=== PATIENT | female | born 1965 | race Two or more races ===

== ENCOUNTER 2021-05-16 02:21 | Inpatient (IN) | payer MEDICAID, OTHER ==
[2021-05-16] VITALS (33 sets, daily range): BP systolic 97–128; BP diastolic 50–76
[~2021-05-16] VITALS: Ht 162.6 cm; Wt 59.0 kg
--- NOTE | 2021-05-16 02:25 | NUR ---
pt bibra c/o overdose of unknown substance. Per EMS, pt was found face down in the street, unresponsive.Pt brought in saturating 100% on 15L NRB. pt unresponsive to pain GCS 6, md at bedside. Pt attached to monitor tech and pox. Pt skin warm and dry. Pt given call light within reach
--- NOTE | 2021-05-16 02:32 | NUR ---
md at bedside for intubation. 0232- etomitdate 20 0232-rocuronium 100 0234 23 @lip with color change 7.0 tube size
--- NOTE | 2021-05-16 02:34 | NUR ---
RT NOTE PATIENT ORALLY INTUBATED WITH ETT 7.0CM @ 23CM AT THE LIP LINE. COLOR CHANGE ON CO2 DETECTOR NOTED. PATIENT HAS EQUAL CHEST RISE AND BILATERAL BREATH SOUNDS UPON VENTILATION. ETT IS SECURED. PATIENT PLACED ON SETTINGS OF AC18 VT450 FIO2 70% PEEP+5 PER MD. PATIENT SUCTIONED FOR TRACE, THIN, CLEAR SECRETIONS. ALARMS ARE SET AND AUDIBLE. MECHANICAL VENT PLUGGED INTO RED OUTLET. EMERGENCY EQUIPMENT AT PATIENT BEDSIDE. WILL CONTINUE TO MONITOR. WAITING FOR FURTHER ORDERS. Addendum: 05/16/21 at 0327 by FEDERICO AVILES RT Amended: Links added.
[2021-05-16] MEDS ORDERED: PROPOFOL 100 ML ONE (02:36)
[2021-05-16] MEDS ORDERED: LIDOCAINE HCL/MPF 1% 30 ML VIAL IJ ONE (02:43)
[2021-05-16] MEDS ORDERED: PIPERACILLIN /TAZOBACTAM 3.375 G in IV D5W 50 ML IV ONE (03:00)
[2021-05-16] MEDS ORDERED: VANCOMYCIN 1 GM in IV D5W 250 ML IV ONE (03:00)
[2021-05-16] MEDS ORDERED: PROPOFOL 100 ML IV PRN ×2 (03:00→04:00)
[2021-05-16] MEDS ORDERED: IV NS 0.9% 1,000 ML BAG IV ONE (03:00)
[2021-05-16] MEDS ORDERED: FENTANYL CITRAT IV 2,500 MCG in IV NS 0.9% 200 ML IV PRN (03:00)
--- NOTE | 2021-05-16 03:00 | NUR ---
taken to ct
[2021-05-16 03:02] LABS: BILIRUBIN,URINE Negative (NEGATIVE); COLOR,URINE LIGHT YELLOW (YELLOW); LEUKOCYTE ESTERASE ,URINE Small (NEGATIVE); NITRITE, URINE Positive (NEGATIVE); PROTEIN,URINE 100 mg/dl (NEGATIVE); UGLUCOSE 500 MG/DL mg/dL (NEGATIVE); UROBILINOGEN,URINE 0.2 EU/dL (0.2)
[2021-05-16 03:08] LABS: BASOPHILS % (AUTO) 0.4 % (0.0-2.0); EOSINOPHILS % (AUTO) 0.7 % (0.0-6.0); HEMATOCRIT 34 % (33-45); HEMOGLOBIN 11.1 g/dL (11.5-14.8); LYMPHOCYTES # (AUTO) 0.8 K/uL (0.8-4.8); LYMPHOCYTES % (AUTO) 10.6 % (20.0-44.0); MEAN CORPUSCULAR HGB CONC 32 g/dl (31.0-36.0); MEAN CORPUSCULAR VOLUME 99 fL (82-100); MONOCYTES # (AUTO) 0.1 K/uL (0.1-1.30); MONOCYTES % (AUTO) 0.7 % (2.0-12.0); NEUTROPHILS # (AUTO) 6.6 K/uL (1.8-8.9); NEUTROPHILS % (AUTO) 87.6 % (43.0-81.0); PLATELET COUNT (AUTO) 295 K/uL (150-450); RED BLOOD CELL COUNT(AUTO) 3.47 MIL/uL (4.0-5.2); WHITE BLOOD COUNT (AUTO) 7.5 K/uL (4.3-11.0)
[2021-05-16 03:15] LABS: ALCOHOL, BLOOD < 3 mg/dL (0-0)
[2021-05-16] MEDS ORDERED: VANCOMYCIN 1 GM VIAL ONE (03:16)
[2021-05-16] MEDS ORDERED: PIPERACILLIN /TAZOBACTAM 3.375 G VIAL IV ONE (03:16)
[2021-05-16 03:25] LABS: CREATINE KINASE, TOTAL 124 U/L (26-192)
[2021-05-16 03:26] LABS: ALANINE AMINOTRANSFERASE 50 U/L (12-78); ALKALINE PHOSPHATASE 93 U/L (46-116); ASPARTATE AMINOTRANSFERASE 76 U/L (15-37); BILIRUBIN,DIRECT 0.1 mg/dL (0.0-0.2); BILIRUBIN,TOTAL 0.1 mg/dL (0.2-1.0); CALCIUM, SERUM 7.5 mg/dL (8.5-10.1); CARBON DIOXIDE 25 mmol/L (21-32); CHLORIDE 105 mmol/L (98-107); CREATININE 1.3 mg/dL (0.6-1.3); POTASSIUM 3.4 mmol/L (3.5-5.1); SODIUM SERUM 140 mmol/L (136-145); TOTAL PROTEIN, SERUM 5.9 g/dL (6.4-8.2); UREA NITROGEN, BLOOD 26 mg/dL (7-18)
[2021-05-16 03:29] LABS: GLUCOSE 395 mg/dL (74-106)
--- NOTE | 2021-05-16 03:39 | NUR ---
at bed side for central line insertion
--- NOTE | 2021-05-16 03:49 | NUR ---
icu 261
[2021-05-16 03:59] LABS: WBC,URINE 21-50 /HPF (0-3)
[2021-05-16 04:00] LABS: BACTERIA,URINE Many /HPF (None Seen); SQUAMOUS EPITHELIAL CELL,UR Moderate /HPF (None Seen)
[2021-05-16] MEDS ORDERED: MORPHINE SULFATE INJ 2 MG/ML DISP.SYRIN IV PRN (04:00)
[2021-05-16] MEDS ORDERED: MAGNESIUM HYDROXIDE 30 ML UDC PO PRN (04:00)
[2021-05-16] MEDS ORDERED: IV NS 0.9% 1,000 ML IV PRN (04:00)
[2021-05-16] MEDS ORDERED: DEXTROSE 50%-WATER 50 ML DISP.SYRIN IV PRN (04:00)
[2021-05-16] MEDS ORDERED: Z GUARD REMEDY 2 OZ OINT TP PRN (04:00)
[2021-05-16] MEDS ORDERED: ACETAMINOPHEN 650 MG/SUPP.RECT RC PRN (04:00)
[2021-05-16] MEDS ORDERED: ONDANSETRON HCL/PF 4 MG/2 ML VIAL IVP PRN (04:00)
[2021-05-16 04:21] LABS: ABG BASE EXCESS -6.8 mmol/L; ABG OXYGEN SATURATION 98.8 % (92.0-98.5); ABG PCO2 56.8 mmHg (35.0-45.0); ABG PH 7.198 (7.350-7.450); ABG PO2 371.4 mmHg (75.0-100.0); AaDO2 66.6 mmHg; COHb 1.1 % (0.5-1.5); MetHb 0.2 % (0.0-1.5); O2Hb 97.5 % (94.0-97.0); PEEP,BG 5 cm H2O; SITE, ABG Left Radial; VT, ABG 450 mL
--- NOTE | 2021-05-16 04:26 | NUR ---
REPORT GIVEN TO ZEYNEP @ ICU
--- NOTE | 2021-05-16 04:28 | NUR ---
RT NOTE RESPIRATORY RATE INCREASED TO 24. FIO2 TITRATED TO 50% PER MD ORDERS. WAITING FOR FURTHER ORDERS.
[2021-05-16] MEDS ORDERED: NOREPINEPHRINE 8 MG in IV NS 0.9% 242 ML IV PRN ×2 (04:30)
[2021-05-16] MEDS ORDERED: POTASSIUM CL. PREMIX PERIPHER. 50 ML IV SCH ×2 (04:30→07:30)
--- NOTE | 2021-05-16 04:55 | NUR ---
1/2 bags of potassium chloride started. Endorsed to [employer] [place]
[2021-05-16] MEDS ORDERED: PIPERACILLIN /TAZOBACTAM 3.375 G in IV D5W 50 ML IV SCH (05:00)
[2021-05-16] MEDS: ENOXAPARIN SODIUM 40 MG/0.4 ML DISP.SYRIN SQ SCH (05:19)
[2021-05-16] MEDS: BLOOD SUGAR DIAGNOSTIC 1 EACH STRIP IN SCH ×5 (05:32→21:01)
[2021-05-16] MEDS: POTASSIUM CL. PREMIX PERIPHER. 50 ML IV SCH ×2 (05:34→06:28)
[2021-05-16 05:39] LABS: ABG BASE EXCESS -4.3 mmol/L; ABG OXYGEN SATURATION 99.3 % (92.0-98.5); ABG PCO2 43.9 mmHg (35.0-45.0); ABG PH 7.313 (7.350-7.450); AaDO2 66.1 mmHg; COHb 0.5 % (0.5-1.5); MetHb 0.2 % (0.0-1.5); O2Hb 98.6 % (94.0-97.0); PEEP,BG 5 cm H2O; SITE, ABG Left Radial; VENT MODE, BG AC 24; VT, ABG 450 mL
--- NOTE | 2021-05-16 05:40 | NUR ---
RN NOTES ABG DONE BY RT FOR POST INTUBATION WITH Ph 7.313 PcO2 43.9Po2 241 FIO2 CHANGE FROM 70 TO 40% BY RT. PATIENT SATURATION AT THIS TIME 100% TOLERATED WELL.
--- NOTE | 2021-05-16 06:31 | NUR ---
RN NOTES 0455 AM - ADMITTED PATIENT FROM ER ORALLY INTUBATED WITH ETT 7 AT 23 CM AT LIPLINE CONNECTED TO VENT SETTING AC 24 TV 450 FIO2 70% AND PEEP 5. DX WITH ACUTE RESPIRATORY FAILURE SECONDARY TO POSS. ASPIRATION. ISOLATIOPN PRECAUTION STRICTLY OBSERVED DUE TO PENDING RAPID AND PCR RESULT. UNABLE TO OBATIN VACCINATION FOR COVID STATUS. PATIENT IS OBTUNDED, UNRESPONSIVE TO PAIN. WITH NECK COLLAR INPLACED. IV SITE ON RIGHT FEMORAL TLC WITH ONGOING KCL 10 MEQ AND NS RUNNING WELL WILL CONTINEU THE REST OF KCL ORDER. CONNECTED TO MONITOR REVEALS SB HR 54 SATURATION 95%. NO RESPIRATORY DISTRESS. PATIENT HAS RIGHT NARES NGT PATENCY CHECKED WITH + GURGLING SOUND ( INTACT) NO RESIDUAL PRESENT. LOW GRADE TEMPERATURE OF 92.5 DEGREE FAHRENHEIT NOTED STARTED TO PLACED ANIA HUGGER AND RECTAL TEMPERATURE INITIATED. BILATERAL SOFT WRIST RESTRAINT KEPT ON FOR SAFETY. KEPT PT CLEAN AND COMFORTABLE IN BED. WILL CONT. POC.
[2021-05-16] MEDS ORDERED: POTASSIUM CHLORIDE 10 MEQ/50 ML PREMIXED IVPB FOR PERIPHERAL LINE IV ONE (07:30)
--- NOTE | 2021-05-16 07:53 | NUR ---
HOSPICE SOCIAL WORKER NOTE PATIENT IN BED WITH ETT TO VENT SETTING ORDERED ,PATIENT IS LETHARGIC BUT RESPONSE TO VERBAL AND TACITLY STIMULI, ABLE TO FOLLOW SIMPLE COMMAND LIKE OPEN YOUR BOTH EYES ANS HOLD MY HANDS , ABLE TO MOVE BOTH FEET, WITH JOSEPH CATH TO GRAVITY , WITH SMALL AMT OF URINE NOTED ON TELE MONITOR SB HR 58 ,ON NPO RT NARE N G TUBE IN PLACE PLACEMENT CHECKED BY AUSCULTATIONS OF AIR, RT AC AND LAC HL INTACT AND RT FEMORAL TLC IN PLACE ,ON IVF ORDERED BED IN LOWEST AND LOCKED POSITION , CALL LIGHT WITHIN REACH , STILL OM SOFT RESTRAIN DUE TO POSSIBLE REMOVE ALL LINES BED IN LOWEST ABD LOCKED POSITION , WILL CONT TO MONITOR
--- NOTE | 2021-05-16 08:44 | NUR ---
multicut line operator note 2d echo done as ordered not in distress
[2021-05-16] MEDS: PIPERACILLIN /TAZOBACTAM 3.375 G in IV D5W 100 ML IV SCH ×2 (08:57→17:09)
[2021-05-16] MEDS: PANTOPRAZOLE 40 MG VIAL IV SCH (08:58)
--- NOTE | 2021-05-16 09:41 | NUR ---
RT PER DR ROSARIO ORDER PATIENT PLACED ON VENT WEANING TRIAL. PATIENT AWAKE AND RESPONDING TO COMMANDS WITH NO SOB NOTED. Addendum: 05/16/21 at 0942 by RODOLFO RIVERO RT Amended: Links added.
[2021-05-16 10:13] LABS: ABG BASE EXCESS -3.6 mmol/L; ABG OXYGEN SATURATION 98.6 % (92.0-98.5); ABG PCO2 58.6 mmHg (35.0-45.0); ABG PH 7.238 (7.350-7.450); ABG PO2 149.3 mmHg (75.0-100.0); AaDO2 68.5 mmHg; COHb 0.1 % (0.5-1.5); MetHb 0.3 % (0.0-1.5); O2Hb 98.2 % (94.0-97.0); SITE, ABG Right Radial
--- NOTE | 2021-05-16 10:20 | NUR ---
curriculum specialist note abg done, patient was on simv mode , but per dr Jennings ordered back on ac mode of vent ac 14 foi2 40% tv 400 , will monitor
[2021-05-16] MEDS ORDERED: ROCURONIUM BROMIDE 50 MG/5 ML IV ONE (10:59)
[2021-05-16] MEDS ORDERED: ETOMIDATE 2 MG/ML VIAL IV ONE (10:59)
[2021-05-16] MEDS ORDERED: SUCCINYLCHOLINE CHLORIDE 20 MG/ML VIAL IV ONE (10:59)
[2021-05-16] MEDS: ALBUTEROL HALF STRENGTH 1.25 MG/3 ML VIAL.NEB NEB SCH ×4 (11:30→23:30)
--- NOTE | 2021-05-16 11:42 | NUR ---
silviculture professor note dr sa enriquez bedside updated patint condition , notified that blood sugar 90 mg\dl ok to change ivf to d5 ns at 75 ml per hour
[2021-05-16] MEDS: IPRATROPIUM NEB FS 0.5 MG/2.5 ML AMPUL.NEB NEB SCH ×4 (12:00→23:30)
[2021-05-16] MEDS: methylPREDNISolone SOD SUCC 125 MG/2ML VIAL IV SCH ×2 (12:40→20:56)
[2021-05-16] MEDS: IV D5/ 0.9% NACL 1,000 ML IV SCH (12:55)
[2021-05-16 13:42] LABS: CALCIUM, SERUM 7.4 mg/dL (8.5-10.1); CREATININE 0.9 mg/dL (0.6-1.3)
--- NOTE | 2021-05-16 14:00 | NUR ---
cardiothoracic icu rn note cont on ivf as ordered not in distress,
--- NOTE | 2021-05-16 14:58 | NUR ---
curriculum and instruction director note hr still afib hr 129 ,titrated Cardizem drip at 10 mg per hour
--- NOTE | 2021-05-16 15:04 | NUR ---
RT PATIENT REMAINS ON AC MODE. PATIENT UNABLE TO MARK WEANING OFF VENT. AMBU BAG AT HOB Addendum: 05/16/21 at 1505 by RODOLFO RIVERO RT Amended: Links added.
[2021-05-16] MEDS: VANCOMYCIN 1 GM in IV D5W 250ml IV SCH (15:06)
--- NOTE | 2021-05-16 15:32 | NUR ---
agricultural produce commission agent note des rn at bedside patient condition updated ,keep clean dry , all needs attended,turn reposition q2 hour Addendum: 05/16/21 at 1549 by SHYANNE CALLOWAY RN t 99.2 reported to soo nunes rn nurse
--- NOTE | 2021-05-16 18:27 | NUR ---
CLOTHING WORKER NOTE ROUND MADE A, ALL NEEDS ATTENDED, STILL ON AC MODE OF VENTILATOR , TOLERATED WELL,WITH JOSEPH CATH TO GRAVITY , WITH YELLOW GUEVARA COLOR, , WITH NG TUBE RT NARE IN PLACE ON IVFA S ORDERED, SEEN Y DR CRUZ NET FINISHER, UPDATE PATIENT CONDITION , WILL CONT TO MONITOR CLOSELY
--- NOTE | 2021-05-16 18:48 | NUR ---
AUTOMOBILE RENTAL AGENT NOTE UNABLE TO REMOVE SOFT RESTRAIN AT THIS TIME , PATIENT STILL AT RISK TO REMOVE ALL LINES AND TUBES ,SKIN WARM AND DRY CHECKED FOR CIRCULATION
--- NOTE | 2021-05-16 19:30 | NUR ---
RN OPENING NOTES: RECEIVED VENT PT IN BED IN NO S/SX OF ACUTE DISTRESS AT THIS TIME. NO SOB NOTED. PATIENT'S BREATHING IS EVEN AND UNLABORED. PATIENT ON MECHANICAL VENT; SETTINGS PRESCRIBED; PT TOLERATED WELL. AMBU BAG AT BED SIDE ALARMS SET PER PROTOCOL AND AUDIBLE. VENT PLUGGED IN TO RED OUTLET. PATIENT ON TELE MONITORING READING SINUS RHYTHM AT THE TIME OF RECEIVED. PATIENT CURRENTLY ON NPO. WITH NGT ON THE R NARE ;SECURED & INTACT,PLACEMENT VERIFIED VIA AUSCULTATION, NO RESIDUAL NOTED; CLAMPED AT THIS TIME. NOTED IV SITE ON R FEMORAL TLC, R AC#18 AND L AC #18; ALL PATENT, INTACT AND FLUSHING WELL; NO S/S OF INFECTION OR INFILTRATION. WITH IV FLUID RUNNING ORDERED. JOSEPH CATH IN PLACE, MODERATE URINE OUTPUT NOTED. WITH BILATERAL SOFT RESTRAINTS IN PLACED, MONITORED AND ASSESSED PER PROTOCOL. SAFETY MEASURES HAVE BEEN PROVIDED AND IMPLEMENTED. PATIENT BED ALARM IS ON. HEAD OF BED ELEVATED. BED IS LOCKED, IN LOWEST POSITION AND SIDE RAILS UP. CALL LIGHT WITHIN REACH OF THE PATIENT. APPLICABLE ISOLATION PRECAUTIONS IN PLACE. WILL CONTINUE TO MONITOR AND REASSESS FOR ANY CHANGES AND WILL CARRY OUT ANY ONGOING AND ACTIVE MD ORDER.
[2021-05-16] MEDS: INSULIN REGULAR, HUMAN 100 UNIT/ML 3 ML VIAL SQ PRN ×2 (21:01→21:37)
[2021-05-17] VITALS (32 sets, daily range): BP systolic 118–145; BP diastolic 66–95
--- NOTE | 2021-05-17 | NUR ---
RN NOTES PATIENT REMAINED TO BE IN NO SIGNS OF ACUTE RESPIRATORY DISTRESS , VITAL SIGNS WNL AT THIS TIME. WILL CONTINUE TO MONITOR AND REASSESS FOR ANY CHANGES THROUGHOUT THE SHIFT.
[2021-05-17] MEDS: PIPERACILLIN /TAZOBACTAM 3.375 G in IV D5W 100 ML IV SCH ×3 (01:01→17:02)
[2021-05-17] MEDS: BLOOD SUGAR DIAGNOSTIC 1 EACH STRIP IN SCH ×6 (01:06→21:26)
[2021-05-17] MEDS: INSULIN REGULAR, HUMAN 100 UNIT/ML 3 ML VIAL SQ PRN ×6 (01:07→21:29)
[2021-05-17] MEDS: IV D5/ 0.9% NACL 1,000 ML IV SCH ×2 (01:20→14:37)
[2021-05-17] MEDS: VANCOMYCIN 1 GM in IV D5W 250ml IV SCH ×2 (02:37→15:41)
[2021-05-17] MEDS: ALBUTEROL HALF STRENGTH 1.25 MG/3 ML VIAL.NEB NEB SCH ×6 (03:30→23:19)
[2021-05-17] MEDS: IPRATROPIUM NEB FS 0.5 MG/2.5 ML AMPUL.NEB NEB SCH ×6 (03:30→23:19)
--- NOTE | 2021-05-17 04:00 | NUR ---
RN NOTES NO NOTED CHANGES IN PATIENT CONDITION AT THIS TIME; PATIENT VITALS STABLE, NO SIGNS OF ACUTE RESPIRATORY DISTRESS. AM PATIENT CARE RENDERED.WILL CONTINUE TO MONITOR AND REASSESS FOR ANY CHANGES THROUGHOUT THE SHIFT.
[2021-05-17 04:25] LABS: BASOPHILS % (AUTO) 0.1 % (0.0-2.0); HEMATOCRIT 33 % (33-45); HEMOGLOBIN 11.2 g/dL (11.5-14.8); LYMPHOCYTES # (AUTO) 0.4 K/uL (0.8-4.8); LYMPHOCYTES % (AUTO) 3.3 % (20.0-44.0); MEAN CORPUSCULAR HGB CONC 34 g/dl (31.0-36.0); MEAN CORPUSCULAR VOLUME 96 fL (82-100); MONOCYTES # (AUTO) 0.1 K/uL (0.1-1.30); MONOCYTES % (AUTO) 0.8 % (2.0-12.0); NEUTROPHILS % (AUTO) 95.8 % (43.0-81.0); PLATELET COUNT (AUTO) 274 K/uL (150-450); RED BLOOD CELL COUNT(AUTO) 3.48 MIL/uL (4.0-5.2); WHITE BLOOD COUNT (AUTO) 11.4 K/uL (4.3-11.0)
[2021-05-17 04:47] LABS: THYROID STIMULATING HORMONE 0.168 uIU/mL (0.358-3.74)
[2021-05-17 04:49] LABS: CALCIUM, SERUM 8.1 mg/dL (8.5-10.1); CREATININE 0.8 mg/dL (0.6-1.3); MAGNESIUM 1.5 mg/dL (1.8-2.4); PHOSPHORUS 3.3 mg/dL (2.5-4.9); POTASSIUM 4.1 mmol/L (3.5-5.1)
[2021-05-17] MEDS: methylPREDNISolone SOD SUCC 125 MG/2ML VIAL IV SCH ×3 (04:57→21:19)
--- NOTE | 2021-05-17 06:47 | NUR ---
RN CLOSING NOTE: PATIENT REMAINS IN ROOM IN NO SIGNS OF RESPIRATORY DISTRESS, PATIENT STILL ON MECH VENT; SETTINGS PRESCRIBED;TOLERATING WELL SATURATING @ >95% SP02. SAFETY MEASURES IMPLEMENTED, BED IN LOWEST POSITION, LOCKED, SIDE RAILS UP, CALL LIGHT WITHIN REACH. ALL NEEDS AND ORDERS ADDRESSED DURING THE SHIFT. IV ACCESS MAINTAINED INTACT, SECURED AND FLUSHING WELL. ALL DUE MEDS GIVEN ORDERED & SCHEDULED ; PATIENT TOLERATED WELL. PATIENT KEPT CLEAN AND COMFORTABLE WITHIN THE SHIFT. PATIENT ENDORSED TO INCOMING SHIFT RN WITH STABLE VITAL SIGN AND FOR CONTINUITY OF CARE.
--- NOTE | 2021-05-17 07:30 | NUR ---
RN NOTE PATIENT IN BED, ASLEEP INTUBATED WITH MECHANICAL VENTILATOR, ON TELE MONITOR SR AT THIS TIME, BREATHING EVEN AND UNLABORED, O2 OF 98%, PATIENT WITH JOSEPH CATHETER DRAINING WELL NO HEMATURIA NOTED, WITH BILATERAL WRIST RESTRAIN NOTED, SKIN INTACT NO BREAKDOWN NOTED, BED WHEELS LOCK, CALL LIGHT WITHIN REACH, SAFETY MEASURE OBSERVED, WILL CONTINUE TO MONITOR.
[2021-05-17] MEDS ORDERED: DC PROPOFOL WHEN EXTUBATED XX PRN (08:00)
[2021-05-17] MEDS: PANTOPRAZOLE 40 MG VIAL IV SCH (08:33)
[2021-05-17] MEDS: ENOXAPARIN SODIUM 40 MG/0.4 ML DISP.SYRIN SQ SCH (09:17)
[2021-05-17 09:48] LABS: ABG BASE EXCESS -1.4 mmol/L; ABG PCO2 43.5 mmHg (35.0-45.0); ABG PH 7.361 (7.350-7.450); ABG PO2 149.5 mmHg (75.0-100.0); AaDO2 85.7 mmHg; COHb 0.3 % (0.5-1.5); MetHb 0.1 % (0.0-1.5); O2Hb 98.6 % (94.0-97.0); SITE, ABG Right Radial; VENT MODE, BG SIMV 3 PS 15 +5 40%
--- NOTE | 2021-05-17 10:05 | NUR ---
RN NOTE DR. GARZA AWARE PATIENT IS EXTUBATED ORDER. REMOVED NGT ORDERED BY DR. GARZA.
--- NOTE | 2021-05-17 10:05 | NUR ---
RN NOTE PATIENT EXTUBATED ORDERED, PATIENT TOLERATING ON O2 VIA NC @ 2LPM, PATIENT CALM AND COMFORTABLE, BREATHING EVEN AND UNLABORED.
--- NOTE | 2021-05-17 11:40 | NUR ---
SS Consult for possible homelessness received. PCR pending per nursing. SW will follow up at a later time.
--- NOTE | 2021-05-17 11:45 | NUR ---
RN NOTE SWALLOW EVALUATION ORDERED PER DR. GARZA.
--- NOTE | 2021-05-17 12:00 | NUR ---
RN NOTE PATIENT SEEN BY DR. KAYLA MD ORDERED FOR PSYCH CONSULT, NOTIFIED MARKETING SUPPORT COORDINATOR OF [facility] AND FAX FACE SHEET. ORDERS NOTED AND CARRIED OUT.
[2021-05-17] MEDS: Magnesium 1GM/D5W 100ML PREMIX 100 ML IV SCH ×2 (12:09→13:28)
--- NOTE | 2021-05-17 14:54 | NUR ---
RT HHN tx not given at this time due to pending PCR results. No SOB or respiratory distress noted.
[2021-05-17] MEDS: LORAZEPAM INJ 2 MG/ML VIAL IV PRN (15:14)
--- NOTE | 2021-05-17 19:13 | NUR ---
RN NOTE PATIENT IN BED, ON O2 VIA NC AT 2LPM, ON TELE MONITOR SR AT THIS TIME, BREATHING EVEN AND UNLABORED, O2 OF 98%, PATIENT WITH JOSEPH CATHETER DRAINING WELL NO HEMATURIA NOTED,MECHANICAL SOFT DIET, WITH BILATERAL WRIST RESTRAIN NOTED, SKIN INTACT NO BREAKDOWN NOTED, BED WHEELS LOCK, CALL LIGHT WITHIN REACH, SAFETY MEASURE OBSERVED, WILL CONTINUE TO MONITOR. WILL ENDORSE TO NOC SHIFT.
--- NOTE | 2021-05-17 19:30 | NUR ---
RN OPENING NOTES: RECEIVED IN BED IN NO S/SX OF ACUTE DISTRESS AT THIS TIME. NO SOB NOTED. PATIENT'S BREATHING IS EVEN AND UNLABORED.PATIENT IS ON 2L OF OXYGEN VIA NC; TOLERATING WELL. PATIENT ON TELE MONITORING READING SINUS RHYTHM AT THE TIME OF RECEIVED. PATIENT CURRENTLY ON MECHANICAL SOFT DIET. NOTED IV SITE ON R FEMORAL TLC; PATENT, INTACT AND FLUSHING WELL; NO S/S OF INFECTION OR INFILTRATION. WITH IV FLUID RUNNING ORDERED. JOSEPH CATH IN PLACE, MODERATE URINE OUTPUT NOTED. WITH BILATERAL SOFT RESTRAINTS IN PLACED, MONITORED AND ASSESSED PER PROTOCOL. SAFETY MEASURES HAVE BEEN PROVIDED AND IMPLEMENTED. PATIENT BED ALARM IS ON. HEAD OF BED ELEVATED. BED IS LOCKED, IN LOWEST POSITION AND SIDE RAILS UP. CALL LIGHT WITHIN REACH OF THE PATIENT. APPLICABLE ISOLATION PRECAUTIONS IN PLACE. WILL CONTINUE TO MONITOR AND REASSESS FOR ANY CHANGES AND WILL CARRY OUT ANY ONGOING AND ACTIVE MD ORDER.
--- NOTE | 2021-05-17 19:33 | NUR ---
TX NOT GIVEN. PCR PENDING.
[2021-05-18] VITALS (26 sets, daily range): BP systolic 122–162; BP diastolic 24–99
[2021-05-18] MEDS: INSULIN REGULAR, HUMAN 100 UNIT/ML 3 ML VIAL SQ PRN ×3 (00:15→09:41)
[2021-05-18] MEDS: BLOOD SUGAR DIAGNOSTIC 1 EACH STRIP IN SCH ×3 (00:15→09:16)
[2021-05-18] MEDS: VANCOMYCIN 1 GM in IV D5W 250ml IV SCH (02:37)
[2021-05-18] MEDS: IPRATROPIUM NEB FS 0.5 MG/2.5 ML AMPUL.NEB NEB SCH ×6 (03:24→23:19)
[2021-05-18] MEDS: ALBUTEROL HALF STRENGTH 1.25 MG/3 ML VIAL.NEB NEB SCH ×6 (03:24→23:20)
[2021-05-18] MEDS: IV D5/ 0.9% NACL 1,000 ML IV SCH ×2 (04:00→16:29)
[2021-05-18 04:31] LABS: BASOPHILS % (AUTO) 0.2 % (0.0-2.0); EOSINOPHILS % (AUTO) 0.1 % (0.0-6.0); HEMATOCRIT 33 % (33-45); HEMOGLOBIN 11.1 g/dL (11.5-14.8); LYMPHOCYTES # (AUTO) 0.4 K/uL (0.8-4.8); LYMPHOCYTES % (AUTO) 4.5 % (20.0-44.0); MEAN CORPUSCULAR HGB CONC 34 g/dl (31.0-36.0); MEAN CORPUSCULAR VOLUME 96 fL (82-100); MONOCYTES # (AUTO) 0.1 K/uL (0.1-1.30); MONOCYTES % (AUTO) 1.2 % (2.0-12.0); PLATELET COUNT (AUTO) 260 K/uL (150-450); RED BLOOD CELL COUNT(AUTO) 3.46 MIL/uL (4.0-5.2); WHITE BLOOD COUNT (AUTO) 9.6 K/uL (4.3-11.0)
[2021-05-18] MEDS: methylPREDNISolone SOD SUCC 125 MG/2ML VIAL IV SCH ×3 (04:31→21:11)
[2021-05-18 04:48] LABS: ALBUMIN 2.8 g/dL (3.4-5.0); BILIRUBIN,TOTAL 0.4 mg/dL (0.2-1.0); CALCIUM, SERUM 8.1 mg/dL (8.5-10.1); CREATININE 0.7 mg/dL (0.6-1.3); MAGNESIUM 1.5 mg/dL (1.8-2.4); PHOSPHORUS 1.7 mg/dL (2.5-4.9); POTASSIUM 3.9 mmol/L (3.5-5.1); TOTAL PROTEIN, SERUM 5.8 g/dL (6.4-8.2)
--- NOTE | 2021-05-18 06:42 | NUR ---
RN CLOSING NOTE: PATIENT REMAINS IN ROOM IN NO SIGNS OF RESPIRATORY DISTRESS, PATIENT STILL ON 2L OF O2 VIA NC;TOLERATING WELL SATURATING @ >95% SP02. SAFETY MEASURES IMPLEMENTED, BED IN LOWEST POSITION, LOCKED, SIDE RAILS UP, CALL LIGHT WITHIN REACH. ALL NEEDS AND ORDERS ADDRESSED DURING THE SHIFT. IV ACCESS MAINTAINED INTACT, SECURED AND FLUSHING WELL. ALL DUE MEDS GIVEN ORDERED & SCHEDULED ; PATIENT TOLERATED WELL. PATIENT KEPT CLEAN & COMFORTABLE WITHIN THE SHIFT. PATIENT ENDORSED TO INCOMING SHIFT RN WITH STABLE VITAL SIGN AND FOR CONTINUITY OF CARE.
--- NOTE | 2021-05-18 07:30 | NUR ---
CONTACT LENS LATHE OPERATOR OPENING NOTES Patient is alert and oriented. Patient is on 2 lpm via n/c with 02 sat of 98%. hob kept elevated. bilateral wrist restraints noted with no breakdown. Patient noted with triple lumen femoral line running d5ns at 75 cc/hour. Will continue to monitor. Call light with in reach.
[2021-05-18] MEDS: PANTOPRAZOLE 40 MG VIAL IV SCH (09:16)
[2021-05-18] MEDS: ENOXAPARIN SODIUM 40 MG/0.4 ML DISP.SYRIN SQ SCH (09:40)
[2021-05-18] MEDS: PIPERACILLIN /TAZOBACTAM 3.375 G in IV D5W 100 ML IV SCH ×3 (09:40→16:30)
[2021-05-18] MEDS: VANCOMYCIN 1 GM in IV D5W 250 ML IV SCH ×2 (11:41→18:44)
[2021-05-18] MEDS: Magnesium 1GM/D5W 100ML PREMIX 100 ML IV SCH ×2 (11:52→13:05)
[2021-05-18] MEDS ORDERED: Sodium Phosphate 15 MMOL in IV NS 0.9% 245 ML IV SCH (13:30)
--- NOTE | 2021-05-18 14:00 | NUR ---
Patient was agitated and yelling and trying to remove iv lines and get out of bed. Patient redirected multiple times to no avail. Provided non pharmacological and pharmacological interventions.
--- NOTE | 2021-05-18 17:14 | NUR ---
RN NOTE PATIENT ADMITTED TO FLOOR ON TELE. 2L O2 NC WITH NO SIGNS OF LABORED BREATHING. REPORT RECEIVED AT THE BEDSIDE. WILL CONTINUE TO MONITOR.
--- NOTE | 2021-05-18 17:18 | NUR ---
Patient was seen by MD Moeller who ordered to remove neck collar. Order noted and collar removed. Patient also seen by MD Le Psychiatrist.
--- NOTE | 2021-05-18 17:19 | NUR ---
Per MD Le patient is clear to be discharged from psych stand point. Patient transferred to tele 107 and bedside report given to Viola.Patient transferred in good stable condition and on 02 2 lpm via n/c, vitals wnl. Patient frequently redirected due to agitation. Endorsed to nurse to follow up on order for MRI of CSPINE with or without contrast.
[2021-05-18] MEDS: LORAZEPAM INJ 2 MG/ML VIAL IV PRN (17:25)
--- NOTE | 2021-05-18 18:45 | NUR ---
RN CLOSING NOTE PATIENT IN BED, AWAKE. A&OX2 AT THIS TIME. ON 2L O2 NC WITH NO SIGNS OF LABORED BREATHING AT THIS TIME. PATIENT HAS A RIGHT FEMORAL TLC RUNNING D5NS AT 75CC/HR. JOSEPH CATH IN PLACE AND PATENT. BED LOCKED AND IN LOWEST POSITION, 3 SIDE RAILS UP, CALL LIGHT WITHIN REACH. ALL SAFETY MEASURES IMPLEMENTED. WILL ENDORSE TO AUTOMOTIVE SERVICE ADVISOR NURSE.
--- NOTE | 2021-05-18 20:07 | NUR ---
RN OPENING NOTES; RECEIVED PATIENT AWAKE IN BED, BED IN LOW POSITION, CALL LIGHTS WITHIN REACH, NO COMPLAIN OF PAIN AND DISCOMFORT AT THIS TIME ON TELE MONITORING SR-75 ON NS CANNULA AT 2LPM. NO SOB OR ANY RESP DISTRESS OBSERVED, PATIENT ON SOFT RESTRAINT BILATERAL WRIST, WITH FEMORAL PICC LINE WITH ONGOING D51/2 NSS @75ML/HR INFUSING WELL, PATIENT KEPT CLEAN AND DRY, WILL CONTINUE TO MONITOR.
--- NOTE | 2021-05-18 20:30 | NUR ---
RN NOTES: PATIENT HAS A SCHEDULED MRI WITH OR WITHOUT CONTRAST TOMORROW EXPLAINED THE PROCEDURE, DONE CHECKLIST BUT PATIENT KEPT ON REFUSING SIGNING THE CONSENT FORM, OFFERED 2X BUT STILL REFUSING TO SIGN.
[2021-05-19] VITALS: BP 142/77
--- NOTE | 2021-05-19 00:20 | NUR ---
RN NOTES: PATIETN REFUSED V/S CHECK, SCREAMING AND COMBATIVE
[2021-05-19] MEDS: PIPERACILLIN /TAZOBACTAM 3.375 G in IV D5W 100 ML IV SCH ×2 (01:08→08:11)
[2021-05-19] MEDS: ALBUTEROL HALF STRENGTH 1.25 MG/3 ML VIAL.NEB NEB SCH ×2 (03:30→07:35)
[2021-05-19] MEDS: IPRATROPIUM NEB FS 0.5 MG/2.5 ML AMPUL.NEB NEB SCH ×2 (03:30→07:35)
[2021-05-19] MEDS: VANCOMYCIN 1 GM in IV D5W 250 ML IV SCH (03:33)
[2021-05-19 04:47] VITALS: BP 156/89
[2021-05-19] MEDS: methylPREDNISolone SOD SUCC 125 MG/2ML VIAL IV SCH (05:09)
--- NOTE | 2021-05-19 05:48 | NUR ---
RN NOTES: PATIENT REFUSED BLOOD DRAWN FOR LAB WORK OUT, OFFERED 2X EXPLAINED THE IMPORTANCE AND BENEFITS BUT PATIENT STRONGLY REFUSED, PER DATE NIGHT SITTER WILL COME BACK AT LATER TIME TO OFFER BLOOD DRAW
[2021-05-19] MEDS: IV D5/ 0.9% NACL 1,000 ML IV SCH (06:49)
--- NOTE | 2021-05-19 07:35 | NUR ---
RN CLOSING NOTES: RECEIVED PATIENT SLEEP IN BED, AROUSABLE TO STIMULI, BED IN LOW POSITION, CALL LIGHTS WITHIN REACH, NO COMPLAIN OF PAIN AND DISCOMFORT AT THIS TIME, PATIENT IS AL/O X2-3 ON RESTRAINT DUE TO COMBATIVE BEHAVIOR, RELEASE Q2H, WITH RIGHT FEMORAL LING ON D5NS@75ML/HR INFUSING WELL, PATIENT ON SCHEDULE MRI CERVICAL SPINE, PROCEDURE EXPLAINED BUT REFUSED TO SIGN CONSENT, ON RA NO SOB NOTED, KEPT CLEAN AND DRY, ALL NEEDS MET, ENDORSE TO INCOMING SHIFT.
[2021-05-19] MEDS: PANTOPRAZOLE 40 MG VIAL IV SCH (08:11)
[2021-05-19] MEDS: ENOXAPARIN SODIUM 40 MG/0.4 ML DISP.SYRIN SQ SCH (08:12)
--- NOTE | 2021-05-19 08:14 | NUR ---
RESP TX DEFERRED PER PTS REQUEST NO S/S OF SOB NOTED RN TO BE NOTIFIED Addendum: 05/19/21 at 0815 by FLORI JORGENSEN RT Amended: Links added.
--- NOTE | 2021-05-19 08:31 | NUR ---
RN NOTE PT ON RESTRAINTS AND REMOVED HER FEMORAL PICC LINE, PROVIDER SN NOTIFIED PT IS REFUSING NEW IV LINE. PT WANTS TO AMA. WILL AWAIT PROVIDER ORDERS
--- NOTE | 2021-05-19 09:30 | NUR ---
RN NOTES PT LEFT AMA. IV REMOVED. PT LEFT WITHOUT SEEING OPERATIONS SUPERVISOR OR PT.
--- NOTE | 2021-05-19 10:00 | NUR ---
SW informed pt. left AMA before SS consult.
== END 2021-05-19 09:24 | disposition left against medical advice (07) | DRG 720 ==
LOC: ER 02:22 → ICU 04:16 → EDBD 04:16 → ICU 04:39 → TELE1 05-18 16:53 → MEDSG1 05-19 08:54
PROVIDERS: ADMIT Nurse Practitioner Acute Care
PROC: 0BH18EZ Insertion of Endotracheal Airway into Trachea, Via Natural or Artificial Opening Endoscopic (ICD-10-PCS; principal; 2021-05-16)
PROC: 5A1945Z Respiratory Ventilation, 24-96 Consecutive Hours (ICD-10-PCS; 2021-05-16)
PROC: 5A09357 Assistance with Respiratory Ventilation, Less than 24 Consecutive Hours, Continuous Positive Airway Pressure (ICD-10-PCS; 2021-05-16)
DX: A41.9 Sepsis, unspecified organism (principal); J96.01 Acute respiratory failure with hypoxia; R65.21 Severe sepsis with septic shock; J69.0 Pneumonitis due to inhalation of food and vomit; J96.02 Acute respiratory failure with hypercapnia; E11.65 Type 2 diabetes mellitus with hyperglycemia; E88.09 Other disorders of plasma-protein metabolism, not elsewhere classified; E83.51 Hypocalcemia; F15.10 Other stimulant abuse, uncomplicated; E83.42 Hypomagnesemia; Z20.822 Contact with and (suspected) exposure to COVID-19; M46.40 Discitis, unspecified, site unspecified; E11.69 Type 2 diabetes mellitus with other specified complication; G95.89 Other specified diseases of spinal cord; E87.6 Hypokalemia; Z59.00 Homelessness unspecified; F29 Unspecified psychosis not due to a substance or known physiological condition; M46.22 Osteomyelitis of vertebra, cervical region; N30.00 Acute cystitis without hematuria; F32.A Depression, unspecified; N17.9 Acute kidney failure, unspecified
CPT/HCPCS: 31720; 36415; 36600; 70450-TC; 71045-TC; 72125-TC; 80048-TC; 80053-TC; 80061-TC; 80076-TC; 80202-TC; 81001; 82010-TC; 82550-TC; 82803-TC; 82962-TC; 83605-TC; 83735-TC; 84100-TC; 84443-TC; 84484-TC; 85025-TC; 85730-TC; 86803; 87040-TC; 87081-TC; 87086-TC; 87186-TC; 87806; 92526; 92611-TC; 93307-TC; 94002-TC; 94003-TC; 94799-TC; 99082-TC; A9563; C9113; G0378; G0480; J0330; J1650; J1815; J2060; J2543; J2930; J3370; J3475; J3480; J3490; J7030; J7040; J7042; J7050; J7060; J7070; U0003